=== PATIENT | female | born 1955 | race Caucasian/White ===

== ENCOUNTER 2017-02-04 10:26 | Inpatient (IN) ==
[2017-02-04] MEDS: SODIUM CHLORIDE 0.9% INJ SCH (14:22)
[2017-02-04] MEDS: PROTONIX IV SCH (14:22)
[2017-02-04] MEDS: NS 1,000 ML IV SCH (14:22)
[2017-02-04] MEDS: LOVENOX SUBQ SCH (14:22)
--- NOTE | 2017-02-04 14:34 | EKG Report ---
Test Performed on : 02/04/2017 2:15:57 PM Test Reason : chest pain Blood Pressure : / mmHG Vent. Rate : 089 BPM Atrial Rate : 089 BPM P-R Int : 146 ms QRS Dur : 076 ms QT Int : 392 ms P-R-T Axes : 066 077 084 degrees QTc Int : 476 ms Sinus rhythm. with premature atrial complexes. with aberrant conduction. Cannot rule out Inferior infarct , age undetermined Abnormal ECG No previous ECGs available Confirmed by Atif VICTORIA, Ariel Reese ([id number]) on 02/05/2017 3:23:23 PM
[2017-02-04 15:11] LABS: ALLEN TEST NO; BE -3.1 mmoll (-3.0-3.0); BLOOD TYPE ARTERIAL; DRAW SITE R BRACHIAL; METHB 1.5 % (0.0-1.5); O2(CT) 18.6 mL/dL (15.0-23.0); PCO2(98.6) 35 mmHg (35-45); PO2(98.6) 71 mmHg (60-100); SAMPLE BLOOD; SAO2 96.6 % (95.0-100.0); THB 14.2 g/dL (11.5-17.4); pH(98.6) 7.39 (7.35-7.45)
[2017-02-04 15:12] LABS: MODALITY ROOM AIR
[2017-02-04 15:25] LABS: MANUAL DIFF NEEDED? NO
[2017-02-04 15:31] LABS: BASO% 0.2 % (0.0-0.8); HEMATOCRIT 42.7 % (37.0-47.0); HEMOGLOBIN 14.3 g/dL (12.0-16.0); LYMPH% 14.6 % (20.5-51.1); MCH 31.4 PG (27-31); MCHC 33.5 g/dL (33-37); MCV 93.6 FL (81-99); MONO# 0.48 X1000 (0.11-0.59); MPV 10.7 FL (7.4-10.4); NEUT% 75.2 % (42.2-75.2); PLT 149 X1000 (130-400); RBC 4.56 XMIL (4.2-5.4)
[2017-02-04 16:00] LABS: AGAP 12; ALBUMIN 3.6 g/dL (3.5-5.0); ALKALINE PHOSPHATASE 46 U/L (32-104); BUN 18 mg/dL (8-22); CALCIUM 7.9 mg/dL (8.8-10.2); CHLORIDE 99 mmol/L (98-107); COSMO 274; GOT 26 U/L (10-30); GPT 13 U/L (10-36); POTASSIUM 3.9 mmol/L (3.5-5.1); SODIUM 136 mmol/L (136-145); TCO2 25 mmol/L (25-35); TOTAL BILIRUBIN 0.19 mg/dL (0.20-1.00); TOTAL PROTEIN 6.4 g/dL (6.3-8.3)
[2017-02-04 16:18] LABS: CK INDEX 0.2 (0.0-2.5); CK-MB 1.55 ng/mL (0.0-5.0)
--- NOTE | 2017-02-04 21:25 | HISTORY AND PHYSICAL ---
CHIEF COMPLAINT: Upper respiratory infection with cough since Friday, history of dizzy spells, near syncope yesterday. HISTORY OF PRESENT ILLNESS: She is a 61-year-old, white female, was seen in our office today with above symptoms. Patient did receive influenza vaccine in the fall. She has URI symptoms, dizzy spells. She has irregular heart beat. EKG showed normal sinus with premature atrial contractions. Influenza A was positive. She has been admitted to the hospital for influenza A infection basically for IV fluids and Tamiflu. She is basically coughing and dizzy spells. She had a cardiac workup done in 2013. PAST MEDICAL HISTORY: Atypical chest pain, stress test was negative 03/2014. Acid reflux disease. Nicotine dependency. Hypertension. Generalized osteoarthritis. Osteoporosis. Vitamin B12 deficiency. PAST SURGICAL HISTORY: Partial hysterectomy, C-spine surgery, partial vulvectomy. MEDICINES: 1. Cozaar 50 mg daily. 2. Premarin 1.25 mg daily. 3. Prilosec 40 mg daily. 4. Tramadol 50 mg twice daily. 5. Voltaren gel as needed. ALLERGIES: Norvasc due to swelling and dizziness. SOCIAL HISTORY: . 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 Smoking 1 pack a day since age 18. No alcohol. FAMILY HISTORY: Father of heart attack at 68. Mom also of lung cancer and arthritis. Brother had colon cancer. HEALTH MAINTENANCE: In my office from 12/02/2016. Flu vaccine 08/2016. Mammography 01/[address] Lim. DEXA scan 02/2015. Pap smear 11/2014. Colonoscopy 02/[address] Ivory. REVIEW OF SYSTEMS: HEENT: No headache. No vision problem. Sniffles, postnasal drainage. No earache. Neck: She has had a neck surgery In the back. No neck pain. No goiter. No lymphadenopathy. Cardiopulmonary: No chest pain, a syncope spell, irregular heart beat. Cough, nonproductive. No shortness of breath, PND, orthopnea or swelling of feet. GASTROINTESTINAL: No nausea or vomiting. Dull pain on the left side. No dysuria. No hesitancy or frequency. Joints: Significant osteoarthritis. Skin: No skin rashes. Neurologic: No focal symptoms or weakness. PHYSICAL EXAMINATION: VITAL SIGNS: Afebrile, stable, 5 feet 2 inches, 117 pounds. HEENT: Atraumatic, normocephalic. Pupils equal, react to light. TMs are normal. Nose and throat congested. NECK: Supple. No lymphadenopathy. JVD is normal. CHEST: Bilateral air entry. No rales, no wheezing. HEART: Sounds are regular. ABDOMEN: Belly is soft, nontender. Good bowel sounds. No masses palpable. No signs of peritonitis. No peripheral edema, cyanosis, or clubbing. NEUROLOGIC: Nonfocal deficits. INVESTIGATIONS: CBC: White cell count 4.8, hematocrit 42, platelet count 149,000. ABG pH is 7.39, pCO2 35, PO2 71 on room air. SMA 7 is normal. Electrolytes are normal. CK 900. MB index, troponin, proBNP were normal. Thyroid function tests were normal. Chest x-ray was pending. EKG is normal sinus with PACs, nothing acute. ASSESSMENT AND PLAN: 1. A 61-year-old white female, admitted to the hospital with ongoing tobacco abuse. Admitted to the hospital with influenza A. Plan is Tamiflu. 2. Dehydration with IV fluids. 3. Deep vein thrombosis and gastrointestinal prophylaxis with Lovenox and Protonix. 4. Symptomatic treatment for guaifenesin/DM every q.4. Reconcile home medications. 5. Tobacco abuse. Quit smoking. We will initiate pneumonia protocol prior to the discharge. We will give her Prevnar 13 and then pneumococcal vaccine 23 after 8 weeks and we will follow up.
[2017-02-04] MEDS: TAMIFLU PO SCH (22:02)
[2017-02-04] MEDS: ROBITUSSIN-DM PO PRN (22:29)
[2017-02-05] MEDS: NS 1,000 ML IV SCH ×3 (05:13→23:46)
--- NOTE | 2017-02-05 07:59 | Diag Imaging Result Document ---
PROCEDURE NAME: CHEST-2 VIEWS - 02/04/2017 CHEST X-RAY, 2 VIEWS: COMPARISON: None. FINDINGS: Lungs are hyperexpanded suggesting COPD. No focal infiltrates, pneumothorax, or pleural effusion. Heart size is normal. IMPRESSION: Possible COPD.
[2017-02-05] MEDS: TAMIFLU PO SCH ×2 (08:01→22:00)
[2017-02-05] MEDS: ROBITUSSIN-DM PO PRN (08:02)
[2017-02-05] MEDS ORDERED: PREVNAR 13 IM ONE (08:03)
[2017-02-05] MEDS: SODIUM CHLORIDE 0.9% INJ SCH (14:26)
[2017-02-05] MEDS: PROTONIX IV SCH (14:27)
[2017-02-05] MEDS: LOVENOX SUBQ SCH (14:27)
[2017-02-06] MEDS: TAMIFLU PO SCH ×2 (08:12→23:05)
[2017-02-06] MEDS: PROTONIX IV SCH ×2 (12:45→14:08)
[2017-02-06] MEDS: NS 1,000 ML IV SCH (12:45)
[2017-02-06] MEDS: SODIUM CHLORIDE 0.9% INJ SCH (12:45)
[2017-02-06] MEDS: LOVENOX SUBQ SCH ×2 (12:45→14:08)
[2017-02-07] MEDS: NS 1,000 ML IV SCH (01:24)
[2017-02-07 08:03] VITALS: BP 118/77
[2017-02-07] MEDS: TAMIFLU PO SCH (08:03)
[2017-02-07] MEDS ORDERED: PREVNAR 13 IM ONE (08:03)
--- NOTE | 2017-02-08 20:47 | DISCHARGE SUMMARY ---
ADMISSION DATE: 02/04/2017 DISCHARGE DATE: 02/07/2017 DISCHARGING DIAGNOSIS: Influenza A infection. SECONDARY DIAGNOSES: 1. Dizziness due to dehydration. 2. Atypical chest pain. Stress test was negative 03/2014. 3. Acid reflux disease. 4. Nicotine dependency. 5. Hypertension. 6. Generalized osteoarthritis. 7. Osteoporosis. 8. Vitamin B12 deficiency. BRIEF HISTORY: Please see the H and P that was done on 02/04/2017. In brief she is a 61-year- old white female was admitted to the hospital with URI symptoms, cough and dizzy weak spells, dehydration. She was diagnosed influenza A. HOSPITAL COURSE: She has a low-grade fever, cough, weak spells. She was given IV fluids and followup orthostatic blood pressure was normal. CBC, SMA 7, LFTs were normal. Chest x-ray stable without any signs of pneumonitis. She was given Tamiflu and symptomatic treatment. Symptoms were improved. LABORATORIES: CBC: White cell count 4.8, hematocrit 42, platelets 149,000. ABG pH is 7.39, pCO2 35, PO2 71, bicarb 22. SMA 7 is normal. LFTs were normal. Magnesium is normal. CK 900, MB, troponin normal, proBNP 1400. Thyroid function tests were normal. EKG showed normal sinus with PACs nothing acute. DISCHARGE INSTRUCTIONS: Pneumococcal vaccine 02/07/2017. Continue Tamiflu 75 mg p.o. b.i.d. for 3 days, Poly-Hist DM liquid q.8 as needed, Z-Tyler and hold the losartan, Premarin 1.2 daily, naproxen 250 every other day. Follow up in my office next week.
== END 2017-02-07 11:00 | disposition home or self-care (01) | DRG 153 ==
LOC: DIRADM 10:26 → 3S 13:12
PROVIDERS: ADMIT Internal Medicine; ATTEND Internal Medicine
DX: J11.1 Influenza due to unidentified influenza virus with other respiratory manifestations (principal); I10 Essential (primary) hypertension; F17.210 Nicotine dependence, cigarettes, uncomplicated; E86.0 Dehydration; R07.89 Other chest pain; J44.9 Chronic obstructive pulmonary disease, unspecified; K21.9 Gastro-esophageal reflux disease without esophagitis; M15.9 Polyosteoarthritis, unspecified; M81.0 Age-related osteoporosis without current pathological fracture; E53.8 Deficiency of other specified B group vitamins; Z82.49 Family history of ischemic heart disease and other diseases of the circulatory system; Z80.1 Family history of malignant neoplasm of trachea, bronchus and lung; Z80.0 Family history of malignant neoplasm of digestive organs; Z79.1 Long term (current) use of non-steroidal anti-inflammatories (NSAID); Z79.899 Other long term (current) drug therapy; Z79.890 Hormone replacement therapy; Z23 Encounter for immunization
CPT/HCPCS: 71020; 80048; 80053; 82550; 82553; 82805; 83735; 83880; 84443; 84484; 85025; 85651; 90670; 93005; 93010; C9113; J1650; J7030; S0164